=== PATIENT | male | born 1980 | race Caucasian/White ===

== ENCOUNTER → 2024-07-09 16:49 | Outpatient (CLI) | payer OTHER, SELFPAY ==
--- NOTE | 2024-07-09 16:51 | DI.RAD.S_ITS ---
PROCEDURE: XR ANKLE LT MIN 3V INDICATIONS: Left ankle pain TECHNIQUE: 4 views of the ankle were acquired. COMPARISON: None. FINDINGS: Bones: No acute displaced fracture or dislocation. The ankle mortise appears maintained. Calcaneal enthesopathy. Soft tissues: No suspicious calcifications. IMPRESSION: No acute radiographic abnormality. No high-grade degenerative changes. Calcaneal insertional enthesopathy. If there is high concern for further derangement, consider MRI evaluation. Dictated by: Sammy Funk M.D. on 07/11/2024 at 9:04 Approved by: Sammy Funk M.D. on 07/11/2024 at 9:05
== END ==
PROVIDERS: Referring Provider Nurse Practitioner Family; Visit Provider Nurse Practitioner Family
DX: M77.32 Calcaneal spur, left foot (principal); M25.572 Pain in left ankle and joints of left foot
CPT/HCPCS: 73610